=== PATIENT | male | born 1990 | race Caucasian/White ===

== ENCOUNTER → 2020-05-09 08:49 | Outpatient (CLI) | payer OTHER, SELFPAY ==
[2020-05-10 10:24] LABS: COVID19 Sendout Not Detected (Not Detect)
== END ==
PROVIDERS: Visit Provider Physician Assistant
DX: Z11.59 Encounter for screening for other viral diseases (principal)
CPT/HCPCS: 87635

== ENCOUNTER 2020-05-12 09:02 | Day surgery (SDC) | payer OTHER, SELFPAY ==
[2020-05-07 09:10] VITALS: BMI 27.3
[2020-05-12] VITALS (9 sets, daily range): BP systolic 95–134; BP diastolic 43–78; PULSE 52–70; RESP 10–20; TEMP 36.2–36.4; O2SAT 97–100; BMI 26.3
--- NOTE | 2020-05-12 | PATH_ITS ---
[facility] Accession Number: [id number] . 01 Material submitted: . back - BACK SOFT TISSUE MASS . 01 Diagnosis: Back, Excision: Mature adipose tissue consistent with lipoma. [facility] 05/14/2020 1514 Local . 01 Electronically signed: . Brittanie Uriarte MD, Dermatopathologist NPI- [id number] . 01 Gross description: . Specimen A is received in formalin, labeled with patient identification and soft tissue mass, back. It consists of a 10.7 x 10.5 x 3.2 cm, yellow-mcnally and soft adipose tissue piece. The shaggy membranous outer surface is inked blue. Sectioning reveals homogeneously yellow-mcnally and mildly lobulated cut surfaces without any grossly identified necrosis or hemorrhage. [employer] sections are submitted in 10 cassettes. . Summary of sections: A1-A10 - one piece each. ([id number]) /MRV 05/13/2020 1310 Local . 01 Pathologist provided ICD-10: B17.9 . 01 CPT . 679008 [facility]formed at: [facility] [address] [place] [address], [place], [place] [id number] MD Miguel Plascencia MD Phone: [phone]
[2020-05-12] MEDS: LACTATED RINGERS 1,000 ML 100 ML IV (09:21)
--- NOTE | 2020-05-12 11:20 | PM.PREOP ---
Pre-operative Note COVID-19 COVID-19 status: Negative Interval Note History & Physical reviewed/Exam performed by Physician: Yes Changes to H&P: No
[2020-05-12] MEDS: CEFAZOLIN 2 GM/100 ML FROZ.PIGGY IV (11:32)
--- NOTE | 2020-05-12 11:48 | SUR.OPER ---
Lateral on villanueva bag, head on pillow, gel axillary roll in place, bottom leg bent with gel pad under knee to foot, upper leg straight and supported with pillows. Upper arm supported by pillows and secured over bottom arm to padded arm board. Safety belt at hip, tape over blanket lower legs.
[2020-05-12] MEDS: BUPIVACAINE 0.25% (PF) VIAL 30 ML INJ (11:56)
--- NOTE | 2020-05-12 12:00 | SUR.PREOP ---
Per Dr Mehta, patient is okay to take a taxi home from hospital.
--- NOTE | 2020-05-12 12:16 | PM.OP.1 ---
Operative Date/Time/Diagnoses Date of procedure: 05/12/20 Time of procedure: 12:16 Pre-op diagnosis: Back soft tissue mass Post-op diagnosis: same Procedure & Clinicians Procedure: Excision soft tissue mass from back Same procedure as scheduled: Yes Indications: Symptomatic enlarging soft tissue mass of patient's right back Surgeon: Jason Mehta Anesthesia Type: General Operative Notes Findings: Consistent with a lipoma Estimated Blood Loss (mL): 20 Procedure in detail: The patient was brought to the operating room and placed right-side up in the lateral decubitus position. He received 2 g of Ancef prior to skin incision. Bilateral SCDs were placed. General anesthesia was induced and he was intubated with an LMA. He was prepped and draped in sterile fashion. Time-out was performed. Incision over the area of soft tissue mass was made. Skin flaps were raised above and below the mass. Mass was then circumferentially dissected out from the underline fascial plane. The was passed off the field as specimen. It measured approximately 15 x 10 cm. Its appearance was consistent with a lipoma. The hole with the subcutaneous tissues were then reapproximated using 3 0 Vicryl sutures skin closed in a running fashion using Monocryl 4 0. Skin closed with Dermabond followed by Steri-Strips. Tolerated procedure well extubated and returned return to the recovery room in stable condition. Total of 30 mL of 0.25% Marcaine was used to infiltrate the skin. Complications: none Post-operative Condition: stable Disposition: same day surgery
[2020-05-12] MEDS: OXYCODONE/ACETAMINOPHEN 5/325 TABLET 1 TAB PO (12:51)
--- NOTE | 2020-05-12 13:18 | SUR.PHASEII ---
pt will be taking a cab home and Dr. Mehta is fine with that. Pt states he is ready to go home. Dressing dry and intact.
== END 2020-05-12 13:33 | disposition home or self-care (01) ==
PROVIDERS: Referring Provider Surgery; Visit Provider Surgery
PROC: (CPT 21931; principal; 2020-05-12 10:15)
DX: D17.1 Benign lipomatous neoplasm of skin and subcutaneous tissue of trunk (principal)
CPT/HCPCS: 21931; J0690; J1885; J2250; J2405; J2704; J3010